=== PATIENT | male | born 1945 | race Caucasian/White ===

== ENCOUNTER → 2020-06-16 10:43 | Outpatient (CLI) | payer MEDICARE, SELFPAY ==
--- NOTE | ~2020-06-16 | MR_ITS ---
EXAMINATION: MR lumbar spine wo con EXAM DATE: 06/16/2020 11:26 INDICATION: Lumbar radiculopathy, low back pain and bilateral leg pain. Prior surgery 1990. TECHNIQUE: Multi-sequential, multiplanar MR images of the lumbar spine were obtained without contrast . Sagittal T1, T2, T2 fat saturation images. Axial T2 weighted images. Comparison is made to prior examination from 06/27/2010. FINDINGS: There is chronic mild to moderate compression fracture of T12. Moderate disc disease from T 10 through L3 and at L4-5, mild at L3-4 and L5-S1. The vertebral bodies are aligned in the AP dimensi on. The conus medullaris terminates at the T12-L1 level and has normal signal intensity and morpholog y. There are no suspicious marrow signal abnormalities. Paraspinal soft tissue is unremarkable. Level by level evaluation: T12-L1: There is a moderate to large diffuse disc bulge. Facet arthropathy: Moderate to severe . Ligamentum flavum enlargement. Neural foraminal stenosis: Moderate bilateral. Central canal stenosis: Moderate to severe, no CSF space surrounding traversing nerve roots. L1-L2: There is a moderate to large diffuse disc bulge. Facet arthropathy: Severe . Ligamentum flavum enlargement. Neural foraminal stenosis: Moderate to severe right, moderate left. Central canal stenosis: Severe. No CSF space surrounding nerve roots. L2-L3: There is a mild diffuse disc bulge. Facet arthropathy: Moderate. Neural foraminal stenosis: Moderate bilateral. Central canal stenosis: Mild to moderate, laminectomies with posterior decompression. L3-L4: There is a moderate diffuse disc bulge. Facet arthropathy: Severe . Ligamentum flavum enlargement. Neural foraminal stenosis: Moderate to severe bilateral. Central canal stenosis: Severe. L4-L5: There is a moderate diffuse disc bulge. Facet arthropathy: Moderate. Neural foraminal stenosis: Moderate bilateral. Central canal stenosis: Moderate. L5-S1: There is a moderate diffuse disc bulge. Facet arthropathy: Severe . Ligamentum flavum enlargement. Neural foraminal stenosis: Moderate bilateral. Central canal stenosis: Severe. Compared to previous examination, there is been interval progression in amount of central canal steno sis at all lumbar levels except previously decompressed L2-3. IMPRESSION: 1. Multilevel severe central canal stenosis. Reviewed, dictated and finalized at location A.
== END ==
DX: M47.25 Other spondylosis with radiculopathy, thoracolumbar region (principal); M48.05 Spinal stenosis, thoracolumbar region; M47.27 Other spondylosis with radiculopathy, lumbosacral region; M48.07 Spinal stenosis, lumbosacral region
CPT/HCPCS: 72148

== ENCOUNTER → 2021-08-26 16:23 | Outpatient (CLI) | payer MEDICARE, SELFPAY ==
--- NOTE | ~2021-08-26 | MR_ITS ---
EXAMINATION: MR cervical spine wo con DATE: 08/26/2021 17:29 INDICATION: Neck pain. TECHNIQUE: Magnetic resonance imaging (MRI) of the cervical spine was performed without intravenous c ontrast. Sequences included sagittal T2-weighted FSE, sagittal T2-weighted FS FSE, sagittal T1-weight ed FSE, axial MERGE, and axial T2-weighted FSE. COMPARISON: Cervical spine MRI 03/25/2010, CT cervical spine 06/05/17 FINDINGS: Bone alignment is normal. There is mild chronic anterior wedging of T1 vertebral body. Ther e is mildly decreased disc height at C4-C5. There are changes of posterior fusion procedure from C3 t o C7 with lateral mass screws. There are laminectomies from C4 to C6. There is a 1.4 x 0.9 x 5.0 cm f luid collection in the postlaminectomy space, consistent with a seroma. The spinal cord signal intens ity is normal. The following disc levels are specifically discussed: C2-C3: The disc does not extend beyond the endplate margin. There is mild bilateral uncovertebral andrea nt osteoarthritis. There is severe bilateral facet joint osteoarthritis. There is mild bilateral neur al foraminal stenosis. There is no central canal stenosis. C3-C4: The disc does not extend beyond the endplate margin. There is mild bilateral uncovertebral andrea nt hypertrophy. There is mild bilateral facet joint hypertrophy. There is mild bilateral neural raphael inal stenosis. There is no central canal stenosis. C4-C5: The disc does not extend beyond the endplate margin. There is mild bilateral uncovertebral andrea nt hypertrophy. There is mild bilateral facet joint hypertrophy. There is mild bilateral neural raphael inal stenosis. There is no central canal stenosis. C5-C6: The disc does not extend beyond the endplate margin. There is mild lateral uncovertebral joint hypertrophy. There is severe right and moderate left facet joint hypertrophy. There is moderate righ t and mild left neural foraminal stenosis. There is no central canal stenosis. C6-C7: The disc does not extend beyond the endplate margin. There is mild bilateral uncovertebral andrea nt hypertrophy. There is severe right and moderate left facet joint osteoarthritis. There is moderate bilateral neural foraminal stenosis. There is no central canal stenosis. C7-T1: The disc does not extend beyond the endplate margin. There is no uncovertebral joint osteoarth ritis. There is severe bilateral facet joint hypertrophy. There is mild bilateral neural foraminal st enosis. There is no central canal stenosis. IMPRESSION: 1. Moderate cervical spondylosis. 2. Posterior fusion procedure from C3 to C7. Reviewed, dictated and finalized at location A.
== END ==
PROVIDERS: Visit Provider Neurological Surgery
DX: Z98.1 Arthrodesis status (principal); M47.813 Spondylosis without myelopathy or radiculopathy, cervicothoracic region; M48.03 Spinal stenosis, cervicothoracic region
CPT/HCPCS: 72141

== ENCOUNTER 2025-01-27 07:13 | Outpatient (CLI) | payer MEDICARE, SELFPAY ==
--- NOTE | ~2025-01-27 | XR_ITS ---
[id number] 01/27/2025 07:30 Indication: Cervicalgia Procedure: 3 view cervical spine Comparison: MRI cervical spine dated 01/27/2025 Findings: There is posterior spinal fusion at C3-C7. 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 Lung apices are normal. Hardware appears to be intact. Vertebral body heights are maintained. No prevertebral soft tissue swelling. There is multilevel facet hypertrophy. Impression: 1: Moderate cervical spondylosis with fusion at C3-C7. Reviewed, dictated and finalized at location O. PROGRAMMER Impression: 1: Moderate cervical spondylosis with fusion at C3-C7.
--- NOTE | ~2025-01-27 | MR_ITS ---
EXAMINATION: MR cervical spine wo/w con DATE: 01/27/2025 10:06 INDICATION: Neck pain. TECHNIQUE: Magnetic resonance imaging (MRI) of the cervical spine was performed without and with 20 mL MultiHance intravenous contrast. COMPARISON: Cervical spine MRI 08/26/2021 FINDINGS: Bone alignment is normal. There is mild chronic anterior wedging of C5-T1 vertebral bodies. There are changes of posterior fusion procedure from C3 to C7 with lateral mass screws. There is diffuse fat replacement of bone marrow, consistent with changes of radiation therapy. There is moderately decreased disc height at C4-C5 and mildly decreased disc height at C5-C6 and C6-C7. There are disc calcifications from C3-C4 through C7-T1. There are laminectomies from C4 to C6 with small chronic fluid collection in the postlaminectomy space, consistent with a seroma. The spinal cord signal intensity is normal. The following disc levels are specifically discussed: C2-C3: The disc does not extend beyond the endplate margin. There is no uncovertebral joint osteoarthritis. There is severe right and moderate left facet joint osteoarthritis. There is mild bilateral neural foraminal stenosis. There is no central canal stenosis. C3-C4: There is a central protrusion. There is severe bilateral uncovertebral joint osteoarthritis. There is moderate bilateral facet joint hypertrophy. There is mild bilateral neural foraminal stenosis. There is mild central canal stenosis. There is posterior decompression. C4-C5: There is a central extrusion. There is moderate bilateral uncovertebral joint hypertrophy. There is moderate bilateral facet joint hypertrophy. There is mild bilateral neural foraminal stenosis. There is mild central canal stenosis. C5-C6: There is a central protrusion. There is severe bilateral uncovertebral joint hypertrophy. There is mild bilateral facet joint hypertrophy. There is moderate bilateral neural foraminal stenosis. There is mild central canal stenosis. There is posterior decompression. C6-C7: The disc does not extend beyond the endplate margin. There is moderate bilateral uncovertebral joint hypertrophy. There is severe bilateral facet joint hypertrophy. There is moderate right and mild left neural foraminal stenosis. There is no central canal stenosis. C7-T1: The disc does not extend beyond the endplate margin. There is mild bilateral uncovertebral joint hypertrophy. There is severe bilateral facet joint hypertrophy. There is mild bilateral neural foraminal stenosis. There is no central canal stenosis. IMPRESSION: 1. Moderate cervical spondylosis, stable from 08/26/2021. 2. Posterior fusion procedure from C3 to C7. Reviewed, dictated and finalized at location E. RT CLERK
== END 2025-01-27 07:14 | disposition home or self-care (01) ==
PROVIDERS: Visit Provider Nurse Practitioner Family
DX: M47.812 Spondylosis without myelopathy or radiculopathy, cervical region (principal); Z98.1 Arthrodesis status
CPT/HCPCS: 72040; 72156; A9577